=== PATIENT | female | born 1960 | race Two or more races ===

== ENCOUNTER 2016-12-02 06:09 | Emergency (ER) | payer MEDICAID ==
[~2016-12-02] VITALS: Ht 175.3 cm; Wt 104.3 kg
[2016-12-02] MEDS ORDERED: ASPIRIN EC81 MG ORAL (06:15)
[2016-12-02] MEDS ORDERED: Nitroglycerin Subl 0.4mg tab (Bottle Of 25) SL ONE (06:20)
[2016-12-02 06:22] VITALS: BP 159/99
[2016-12-02 06:26] LABS: MEAN CORPUSCULAR HEMOGLOBIN 33.4 PG (27.0-31.0); MEAN CORPUSCULAR HGB CONC 33.8 G/DL (32.0-36.0); MEAN CORPUSCULAR VOLUME 99 FL (80-99); MEAN PLATELET VOLUME 9.9 FL (6.5-10.1); PLATELET COUNT 153 K/UL (150-450); RED BLOOD COUNT 4.91 M/UL (4.20-5.40); RED CELL DISTRIBUTION WIDTH 12.1 % (11.6-14.8)
--- NOTE | 2016-12-02 06:26 | Emergency Room Report ---
History of Present Illness General Chief Complaint: Chest Pain Source: Patient Present Illness HPI 56 YOF smoker without known PMHx presents after substernal 07/19 non-radiating heavy chest pain woke her up at 430am (almost 2 hours prior). EMS gave ASA, nitro. No previous AMI. Pain was momentarily relieved with EMS-given meds, then came back. Smoker, ETOH. Denies cocaine, drug use. EMS rhythm strip shows ST elevation in v1, 2, 3. No reciprocal changes. Allergies: Coded Allergies: No Known Allergies (Unverified , 12/02/16) Patient History Past Medical History: none Past Surgical History: none Pertinent Family History: none Social History: Reports: alcohol use, smoking Now: No Immunizations: UTD Reviewed Nursing Documentation: PMH: Agreed, PSxH: Agreed Nursing Documentation-PMH Hx Hypertension: Yes Review of Systems All Other Systems: negative except mentioned in HPI Physical Exam Vital Signs Date Time Temp Pulse Resp B/P Pulse Ox O2 Delivery O2 Flow Rate FiO2 12/02/16 06:11 97.5 73 18 163/105 96 Room Air Sp02 EP Interpretation: reviewed, abnormal General Appearance: alert, GCS 15, non-toxic, moderate distress Head: normocephalic, atraumatic Eyes: bilateral eye EOMI, bilateral eye PERRL ENT: normal ENT inspection, hearing grossly normal, normal voice Neck: normal inspection, full range of motion, supple, no bony tend Respiratory: normal inspection, chest non-tender, lungs clear, normal breath sounds, no rhonchi, no respiratory distress, no retraction, no accessory muscle use, no wheezing Cardiovascular #1: normal peripheral pulses, regular rate, rhythm, no edema Gastrointestinal: normal inspection, normal bowel sounds, non tender, soft, no guarding, no hernia Musculoskeletal: normal inspection, back normal, normal range of motion, Robby' s Sign negative Neurologic: normal inspection, alert, oriented x3, responsive, director of physical security III-XII nml as tested, motor strength/tone normal, speech normal Psychiatric: normal inspection, judgement/insight normal, mood/affect normal Skin: normal inspection, normal color, no rash Procedures Critical Care Time Critical Care Time CC time: 30 minutes 56 YOF smoker/ETOH with severe substernal chest pain EMS rhythm strip clearly shows ROM in anterior leads ASA, nitro given by EMS Additional Nitro and Heparin bolus given in ED CC time includes interpretation of ECG, discussion with Dr Lincoln at [facility] Medical Decision Making Diagnostic Impression: Primary Impression: Chest pain Qualified Codes: R07.89 - Other chest pain ER Course 56 YO F with chest pain ECG done here shows anteroseptal STEMI Patient still c/o severe chest pain, additional SL nitro given Initiated transfer at 615am Spoke to Dr Lincoln at [facility] at 630am, agrees for transfer Agreed with heparin bolus 5000U, given in ED Transfer initiated with Rescue 26 EKG Diagnostic Results Rate: other - ROM in V2, 3. TWI in 1, 2, AVL. Rhythm: NSR ST Segments: other - See above ASA given to the pt in ED: No PA Scribe Text ASA given by EMS Rhythm Strip Diag. Results EP Interpretation: yes Rate: 77 Rhythm: NSR, no PVC's, no ectopy Chest X-Ray Diagnostic Results EP Interpretation: Yes Findings: no consolidation, no effusion, no pneumothorax, no acute cardiopulmonary disease Number of Views: 1 Last Vital Signs Date Time Temp Pulse Resp B/P Pulse Ox O2 Delivery O2 Flow Rate FiO2 12/02/16 06:11 97.5 73 18 163/105 96 Room Air Disposition: ADMITTED INPATIENT Condition: Critical TRISTAN CHAUHAN M.D. Dec 02, 2016 06:25
[2016-12-02] MEDS ORDERED: Nitroglycerin Subl 0.4mg tab (Bottle Of 25) SL PRN (06:30)
[2016-12-02] MEDS ORDERED: Heparin 5000 units/ml inj IV STA (06:30)
[2016-12-02 06:43] LABS: ALANINE AMINOTRANSFERASE 136 U/L (3-33); ALBUMIN/GLOBULIN RATIO 1.1 (1.0-2.7); ANION GAP 23 (5-15); ASPARTATE AMINO TRANSFERASE 111 U/L (5-40); CALCIUM 9.1 mg/dL (8.6-10.2); CARBON DIOXIDE 18 mEQ/L (20-30); CHLORIDE 98 mEQ/L (98-107); CREATININE 0.9 mg/dL (0.5-0.9); GLOMERULAR FILTRATION RATE > 60 mL/min (>60); HEMOLYSIS 7; POTASSIUM 3.2 mEQ/L (3.4-4.9); SODIUM 139 mEQ/L (135-145); TOTAL PROTEIN 7.2 g/dL (6.6-8.7)
[2016-12-02 06:47] VITALS: BP 159/99
[2016-12-02 06:56] LABS: TROPONIN I < 0.30 ng/mL (<=0.30)
[2016-12-02 07:06] LABS: CKMB 3.3 ng/mL (< 3.8)
[2016-12-02 07:07] LABS: BASOPHILS % (MANUAL) 1 % (0-2); EOSINOPHILS % (MANUAL) 1 % (0-3); LYMPHOCYTES % (MANUAL) 55 % (20-45); NEUTROPHILS % (MANUAL) 38 % (45-75); TOTAL CELLS COUNTED 100
[2016-12-02 07:08] LABS: BAND NEUTROPHILS % (MANUAL) 0 % (0-8); PLATELET ESTIMATE ADEQUATE; PLATELET MORPHOLOGY NORMAL
--- NOTE | 2016-12-03 08:48 | Diagnostic Imaging Report ---
Indication: PAIN Technique: One view of the chest Comparison: none Findings: Lungs and pleural spaces are clear. Heart size is upper limits normal . There is minimal atelectasis at the left lateral lung base Impression: No acute process
--- NOTE | 2016-12-04 03:06 | Cardiology Report ---
APPROVED REPORT EKG Measurement Heart [id number] MN 134P [id number] Age and gender specific ECG analysis Normal sinus rhythm Right superior axis deviation Anteroseptal infarct, possibly acute T wave abnormality, consider inferior ischemia Abnormal ECG
== END 2016-12-02 06:42 | disposition short-term general hospital (02) ==
LOC: EDBD 06:09 → EMR 06:42
DX: R07.89 Other chest pain (principal); F17.200 Nicotine dependence, unspecified, uncomplicated; I10 Essential (primary) hypertension
CPT/HCPCS: 36415; 71010; 80053; 82550; 82553; 83880; 84484; 85007; 85025; 85730; 93005; 99291; J1644